=== PATIENT | female | born 1995 | race Caucasian/White ===

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

== ENCOUNTER 2018-12-29 18:02 | Emergency (ER) | payer SELFPAY ==
--- NOTE | 2018-12-29 18:14 | ED Physician Documentation ---
General Adult - HISTORIAN Historian: patient - HPI Stated Complaint: allergic reaction Chief Complaint: Allergic Reaction Onset: hours (2) Timing: still present Severity: moderate Further Comments: yes (She reports she did take zantac a few hours ago and she started to have a rash so she did take a benadryl about 1.5 hours ago and she had no resolution of rash. She is starting to feel short on air. She has no other complaints. States rash is mostly on arms) Last known Well Code/Unknown Code: Unknown - ROS CONST: no problems CVS/RESP: shortness of breath - PAST HX Past History: none Immunizations: UTD Allergies/Adverse Reactions: Allergies Allergy/AdvReac Type Severity Reaction Status Date / Time Penicillins Allergy Verified 12/29/18 18:14 Home Medications: Ambulatory Orders Medication Instructions Recorded NK 12/29/18 - SOCIAL HX Smoking History: non-smoker Alcohol Use: none Drug Use: none - FAMILY HX Family History: No - VITAL SIGNS Vital Signs: Vital Signs Temp Pulse Resp BP Pulse Ox 127/76 10/23/16 11:34 - REVIEWED ASSESSMENTS Nursing Assessment Reviewed: Yes Vitals Reviewed: Yes Progress - Progress Progress: 1835: post neb - lungs clear. Decreased redness in skin. SHe states no further shortness of breath. DG 190: hives have resolved. No further shortness of air. She is ready to discharge home DG General Adult Physical Exam - PHYSICAL EXAM GENERAL APPEARANCE: mild distress EENT: eye inspection normal, pharynx normal, no signs of dehydration NECK: normal inspection RESPIRATORY: no resp distress, chest non-tender, wheezes CVS: reg rate & rhythm, heart sounds normal, equal pulses, no murmur ABDOMEN: soft, normal bowel sounds, no distension BACK: normal inspection SKIN: other (red raised areas on bilateral upper arms. mild redness on inner upper thighs. ) EXTREMITIES: non-tender, normal range of motion, no evidence of injury, no edema NEURO: oriented X3 Discharge Clincal Impression: Allergic reaction caused by a drug Qualifiers: Encounter type: initial encounter Qualified Code(s): T78.40XA - Allergy, unspecified, initial encounter Referrals: Primary Doctor,No [Primary Care Provider] - 2 Days Comments: 1. Continue OTC meds as directed for symptom management 2. Prednisone 20 mg take 1 by mouth daily starting 12-30-2018 3. Keep skin cool 4. Follow up with PCP in 2 days 5. Return to ER for increasing concerns Condition: Stable Disposition: 01 HOME, SELF-CARE Decision to Admit: NO Date of Decison to Admit: 12/29/18 Decision Time: 19:11
[2018-12-29] MEDS: diphenhydrAMINE HCL 50 MG/ML VIAL IVP ONE (18:26)
[2018-12-29] MEDS: 0.9 % SODIUM CHLORIDE 1,000 ML IV ONE (18:26)
[2018-12-29] MEDS: methylPREDNISolone SOD SUCC 125 MG/2 ML VIAL IVP ONE (18:26)
[2018-12-29] MEDS: IPRATROPIUM/ALBUTEROL SULFATE 3 ML AMPUL.NEB NEB ONE (18:48)
[2018-12-29 20:38] VITALS: BP 116/70
== END 2018-12-29 19:17 | disposition home or self-care (01) ==
LOC: ED 18:02
DX: T78.40XA Allergy, unspecified, initial encounter (principal); T88.7XXA Unspecified adverse effect of drug or medicament, initial encounter
CPT/HCPCS: 94640; 94760; 96365; 99283; 99284; J1200; J2930; J7030; S1016